=== PATIENT | female | born 1950 | race Caucasian/White ===

== ENCOUNTER → 2019-12-19 12:13 | Outpatient (BNVA) | payer MEDICARE, SELFPAY | PROVIDERS: PCP Nurse Practitioner; Referring Provider Nurse Practitioner; Visit Provider Psychiatry & Neurology Neurology | DX: G35 Multiple sclerosis (principal); G62.9 Polyneuropathy, unspecified; M81.0 Age-related osteoporosis without current pathological fracture; R53.83 Other fatigue; R29.898 Other symptoms and signs involving the musculoskeletal system; R29.2 Abnormal reflex; H53.9 Unspecified visual disturbance | CPT/HCPCS: 99203; 99358 ==